=== PATIENT | male | born 1975 | race Caucasian/White ===

== ENCOUNTER → 2019-06-20 12:34 | Outpatient (CLI) | payer OTHER, SELFPAY ==
--- NOTE | 2019-06-20 | DI.RAD.S_ITS ---
PROCEDURE: XR CHEST 2V INDICATIONS: chronic bronchitis TECHNIQUE: 2 views of the chest were acquired. COMPARISON: None. FINDINGS: Surgical changes and devices: None. Lungs and pleura: Lungs are clear. Mild bronchial wall thickening. No pleural effusions or pneumothorax. Mediastinum: Mediastinal contours are normal. Heart size is normal. Bones and chest wall: No suspicious bony abnormalities. Soft tissues appear unremarkable. IMPRESSION: Mild bronchial wall thickening. No consolidation. Dictated by: Pipo Lawler Carol Interpreted: Javier Goncalves MD on 06/20/2019 at 15:07 Approved by: Javier Goncalves M.D. on 06/20/2019 at 15:42
--- NOTE | 2019-06-22 16:19 | PM.PFT.1 ---
Pulmonary Function Test Referral & Results Date Patient Seen: 06/20/19 Requesting provider: Tej Davenport Results: The spirometry demonstrates an FVC of 3.92 L which is 68% of predicted. The FEV1 was measured at 3.32 L which is 73% of predicted. The FEV1/FVC ratio was 85 which is 107% of predicted. Following the administration of bronchodilator there was 30% improvement in FEV1 and a 64% improvement in FEF 25-75%. Lung volumes show an SVC of 4.81 L which is 87% of predicted. The diffusing capacity was measured at 39.16 which is 107% of predicted. The maximum voluntary ventilation was normal Interpretation: This study demonstrates mild obstructive lung disease with evidence of benefit following bronchodilator based on significant improvement in FEV1 and FEF 25-75%
== END ==
PROVIDERS: Visit Provider Orthopaedic Surgery
DX: J42 Unspecified chronic bronchitis (principal)
CPT/HCPCS: 71046; 94060; 94726; 94729